=== PATIENT | female | born 1955 | race Caucasian/White ===

== ENCOUNTER 2018-10-12 09:20 | Day surgery (SDC) | payer BC ==
[2018-10-08 14:34] VITALS: BMI 29.0
[~2018-10-12 09:20] MED LIST: BUPIVACAINE HCL/PF 0.25% (2.5MG/ML) 10 ML VIAL IJ ONE
[2018-10-12] MEDS ORDERED: BUPIVACAINE HCL/PF 2.5 MG/ML - 30 ML VIAL IJ ONE ×2 (11:25→12:52)
[2018-10-12] MEDS ORDERED: MIDAZOLAM HCL 2 MG/2 ML SINGLE DOSE VIAL ONE (11:34)
[2018-10-12] MEDS ORDERED: ceFAZolin SODIUM 1 GM VIAL ONE (11:41)
[2018-10-12] MEDS ORDERED: GLYCOPYRROLATE 0.2 MG/1 ML VIAL ONE (11:41)
[2018-10-12] MEDS ORDERED: PROPOFOL 20 ML ONE (11:41)
[2018-10-12] MEDS ORDERED: LIDOCAINE HCL 2% JELLY (5 ML/TUBE) ONE (11:48)
[2018-10-12] MEDS ORDERED: EPINEPHrine 1:1,000 1 MG/1 ML - 30ML VIAL (INJECTION) ONE ×2 (11:56→12:52)
[2018-10-12] MEDS ORDERED: DESFLURANE GAS 240 ML BOTTLE IH ONE (11:59)
[2018-10-12] MEDS ORDERED: ONDANSETRON 4 MG/2 ML VIAL ONE ×2 (12:10→12:42)
[2018-10-12] MEDS ORDERED: DEXAMETHASONE SOD PHOSPHATE 4 MG/1 ML VIAL ONE (12:10)
[2018-10-12] MEDS ORDERED: BUPIVACAINE HCL/PF 0.25% (2.5MG/ML) 10 ML VIAL IJ ONE (12:15)
[2018-10-12] MEDS ORDERED: ONDANSETRON 4 MG/2 ML VIAL IVPUSH ONE (12:45)
[2018-10-12] MEDS ORDERED: oxyCODONE HCL 5 MG TABLET PO PRN (12:51)
[2018-10-12] MEDS ORDERED: PROMETHAZINE HCL 25 MG/1 ML VIAL ONE (14:02)
[2018-10-12 15:21] VITALS: BP 110/72; PULSE 62; TEMP 98
--- NOTE | 2018-10-13 10:42 | OP ---
DATE OF OPERATION: 10/12/2018 SURGEON: Slick Gregorio MD ASSISSTANT: TUSHAR Valencia PREOPERATIVE DIAGNOSIS: 1. Right knee medial and lateral meniscus tears. 2. Right knee cartilage injury. 3. Right knee synovitis. POSTOPERATIVE DIAGNOSIS: 1. Right knee medial and lateral meniscus tears. 2. Right knee cartilage injury. 3. Right knee synovitis. PROCEDURE: 1. Right knee arthroscopy with partial meniscectomy, medial and lateral meniscus, CPT code 97278. 2. Right knee arthroscopy with chondroplasty, CPT code 10406. 3. Right knee arthroscopy with synovectomy, CPT code 20232. FINDINGS: 1. Medial meniscus central body tear extending to posterior horn. 2. Lateral meniscus central body tear. 3. Synovitis, patellofemoral, medial and lateral notch area and large medial plica. 4. Grade 2-3 cartilage injury central 1/3 in the medial femoral condyle and tibial plateau. 5. ACL and PCL intact. 6. Diffuse grade 1-2 cartilage injury in the lateral femoral condyle and tibial plateau, central 2/3. 7. Central grade 2 with extensive grade 4 changes central 1/3 of patella in patellofemoral trochlea. 8. Loose body 1 cm x 0.5 cm. DESCRIPTION OF PROCEDURE: Informed consent was obtained. The patient came to the operating room, where the lower extremity was prepped and draped in a sterile fashion. A tourniquet was placed on the upper thigh, but not inflated. Using standard arthroscopic technique, a lateral incision and portal was made to allow for introduction of the camera into the suprapatellar bursa. This was then taken to the medial joint line, where under direct visualization, a medial incision and portal was made. Excessive synovium noted in the medial, lateral and patellofemoral and notch area was removed by an upbiter, shaver and Bovie cautery. This was found to bring in inflammatory tissue into the joint surface, a source of pain and dysfunction. Probing of the medial and lateral meniscus found tears, as described in the findings. These were removed with the upbiter and shaver and taken back to a stable rim. Grade 2 to 3 degenerative changes were treated with a chondroplasty, removing all flaking surfaces with low-setting Bovie along the periphery to prevent further flaking. Grade 4 changes, as noted, were treated with an abrasoplasty, creating a bleeding surface at the bone/cartilage interface. Aggressive debridement with shaver/grace created bleeding surface. Micro fracture also done when indicated in findings. All areas of the knee were once again reexamined. The knee was then drained and a single suture was placed in all portals. A sterile dressing was placed and the patient was transferred to the recovery room without complication. The PA listed above was present and assisted at surgery. Their presence was absolutely medically necessary for the completion of the procedure. They helped hold the arthroscopy, pass instruments (and implants when indicated) and the procedure could not have been completed without their assistance. ADDENDUM: Due to the extensive nature of the grade 4 changes on the patellofemoral joint, an abrasoplasty was not performed. The chondroplasty was performed along the edges. The PA listed above was present and assisted at surgery. Their presence was absolutely medically necessary for the completion of the procedure. They helped hold the arthroscopy, pass instruments (and implants when indicated) and the procedure could not have been completed without their assistance. SLICK GREGORIO M.D. [id number]
--- NOTE | 2018-10-15 15:42 | PATH ---
Surgical Pathology Report Patient Name: JUDITH CHURCHILL [facility]. Rec. #: [id number] /Age/Gender: 1955 (Age: 63) / F Account: [id number] Location: [facility] Taken: 10/12/2018 Received: 10/12/2018 Reported: 10/15/2018 Physicians: Slick Erickson M.D. Specimen(s) Received SHAVINGS RIGHT KNEE Clinical History Tear of medial meniscus right knee Final Diagnosis KNEE, RIGHT, ARTHROSCOPIC SHAVINGS: CARTILAGE AND FIBROSYNOVIAL TISSUE SHOWING NODULAR AGGREGATES OF CALCIFIC MATERIAL WITH POLARIZABLE WEAKLY BIREFRINGENT CRYSTALS, CONSISTENT WITH CHONDROCALCINOSIS (PSEUDOGOUT). Electronically Signed Ruth Jesus M.D. Gross Description Received in formalin, labeled "right knee shavings," is a 5.0 x 3.6 x 0.3 cm. aggregate of camejo-yellow soft tissue fragments. A agency sales representative portion is submitted in one cassette. /10/12/2018 saudi/10/12/2018
== END 2018-10-12 15:21 | disposition home or self-care (01) ==
LOC: FASU 09:20
PROVIDERS: ATTEND Orthopaedic Surgery
PROC: 0SBC4ZZ Excision of Right Knee Joint, Percutaneous Endoscopic Approach (ICD-10-PCS; 2018-10-12)
PROC: 0SBC4ZZ Excision of Right Knee Joint, Percutaneous Endoscopic Approach (ICD-10-PCS; 2018-10-12)
PROC: 0SBC4ZZ Excision of Right Knee Joint, Percutaneous Endoscopic Approach (ICD-10-PCS; principal; 2018-10-12 12:04)
DX: S83.241A Other tear of medial meniscus, current injury, right knee, initial encounter (principal); S83.281A Other tear of lateral meniscus, current injury, right knee, initial encounter; S83.8X1A Sprain of other specified parts of right knee, initial encounter; M65.861 Other synovitis and tenosynovitis, right lower leg; X58.XXXA Exposure to other specified factors, initial encounter; Y93.9 Activity, unspecified; Y92.9 Unspecified place or not applicable
CPT/HCPCS: 88304-TC; 94760